=== PATIENT | female | born 1945 | race African-American/Black ===

== ENCOUNTER 2016-09-06 07:53 | Emergency (ER) | payer MEDICARE, MEDICAID ==
[~2016-09-06] VITALS: Ht 162.6 cm; Wt 80.0 kg
[~2016-09-06 07:53] MED LIST: BIMA2.5D4; BRIM10DR2 BOTHEYE; GLIP5TAB12 PO; LOSA100T14 PO; MORP60TA PO; MOTRIN PO; TRAV5DRO4 BOTHEYE
[2016-09-06] MEDS ORDERED: MORPHINE SULFATE 4 MG/ML CPJ (NOT FOR IM USE) IV ONE (08:30)
[2016-09-06] MEDS ORDERED: KETOROLAC 30MG/ML VIAL IV ONE (09:00)
[2016-09-06] MEDS ORDERED: ALBUTEROL (0.083%) 2.5MG/3ML NEB HHN STA (10:20)
[2016-09-06 11:33] VITALS: BP 124/61
== END 2016-09-06 12:46 | disposition home or self-care (01) ==
LOC: ER 08:18
DX: M48.02 Spinal stenosis, cervical region (principal); R06.00 Dyspnea, unspecified; E11.9 Type 2 diabetes mellitus without complications; I10 Essential (primary) hypertension; M54.9 Dorsalgia, unspecified; Z79.899 Other long term (current) drug therapy
CPT/HCPCS: 72125; 94640; 96374; 96375; 99284; J1885; J2270; J7611

== ENCOUNTER 2017-01-09 17:38 | Emergency (ER) | payer MEDICARE, MEDICAID ==
[~2017-01-09] VITALS: Ht 167.6 cm; Wt 95.0 kg
[2017-01-09 18:35] LABS: BASOPHILS % 0.5 % (0.0-2.0); HEMATOCRIT. 38.2 % (36.0-48.0); HEMOGLOBIN. 12.7 g/dL (12.0-16.0); LYMPHOCYTES % 28.3 % (20.0-50.0); MEAN CORPUSCULAR HEMOGLOBIN 29.9 pg (28.0-32.0); MEAN CORPUSCULAR VOLUME 89.6 fL (81.0-99.0); MONOCYTES % 9.2 % (2.0-8.0); PLATELET 215 x1000/uL (130-400); RED BLOOD CELL COUNT 4.26 mill/uL (4.2-5.4); RED CELL DISTRIBUTION WIDTH 13.2 % (11.6-14.6)
[2017-01-09 18:39] LABS: PROTHROMBIN TIME 10.5 sec
[2017-01-09 18:47] LABS: CARBON DIOXIDE 30 mEq/L (21-32); CHLORIDE 110 mEq/L (98-107); ETHANOL BLOOD < 10 mg/dL
[2017-01-09 18:49] LABS: TROPONIN I < 0.02 ng/mL (0.00-0.04)
[2017-01-09 19:09] LABS: *AMPHETAMINES SCREEN URINE NEGATIVE (NEGATIVE); *BARBITURATES SCREEN URINE NEGATIVE (NEGATIVE); *BENZODIAZEPINES SCREEN URINE NEGATIVE (NEGATIVE); *COCAINE SCREEN URINE NEGATIVE (NEGATIVE); CANNABINOID URINE SCREEN NEGATIVE (NEGATIVE); METHADONE URINE SCREEN NEGATIVE (NEGATIVE); OPIATES URINE SCREEN PRESUMTIVE POSITIVE (NEGATIVE); PHENCYCLIDINE URINE SCREEN NEGATIVE (NEGATIVE)
[2017-01-09 21:50] VITALS: BP 118/66
== END 2017-01-09 22:18 | disposition home or self-care (01) ==
LOC: ER 19:07
DX: M54.12 Radiculopathy, cervical region (principal); E11.9 Type 2 diabetes mellitus without complications; I10 Essential (primary) hypertension; J44.9 Chronic obstructive pulmonary disease, unspecified; M47.892 Other spondylosis, cervical region; Z90.49 Acquired absence of other specified parts of digestive tract
CPT/HCPCS: 36415; 71010; 72125; 80053; 80305; 84484; 85025; 85610; 93005; 99285; G0482

== ENCOUNTER 2017-03-23 12:01 | Emergency (ER) | payer MEDICARE, MEDICAID ==
[~2017-03-23] VITALS: Ht 165.1 cm; Wt 77.0 kg
[2017-03-23 16:27] LABS: CLARITY URINE CLEAR (CLEAR); COLOR URINE YELLOW (YELLOW); GLUCOSE URINE NEGATIVE (NEGATIVE); KETONES URINE NEGATIVE (NEGATIVE); LEUKOCYTE ESTERASE URINE NEGATIVE (NEGATIVE); NITRITE URINE NEGATIVE (NEGATIVE); OCCULT BLOOD URINE NEGATIVE (NEGATIVE); PROTEIN URINE NEGATIVE (NEGATIVE); SPECIFIC GRAVITY URINE 1.025 (1.005-1.030); UROBILINOGEN URINE 0.2 E.U./dL (0.2-1.0)
[2017-03-23] MEDS ORDERED: ONDANSETRON HCL 4MG/2ML VIAL IV STA (17:11)
[2017-03-23] MEDS ORDERED: SODIUM CHLORIDE 0.9% 1,000 ML IV ONE (17:11)
[2017-03-23] MEDS ORDERED: KETOROLAC 30MG/ML VIAL IM STA (17:11)
[2017-03-23 17:52] LABS: PROTHROMBIN TIME 10.4 sec (9.4-11.6)
[2017-03-23 17:53] LABS: BASOPHILS % 0.6 % (0.0-2.0); EOSINOPHILS % 3.5 % (0.0-5.0); HEMATOCRIT. 39.4 % (36.0-48.0); HEMOGLOBIN. 13.2 g/dL (12.0-16.0); MEAN CORPUSCULAR VOLUME 89.8 fL (81.0-99.0); MEAN PLATELET VOLUME 8.4 fl (7.4-10.4); MONOCYTES % 10.9 % (2.0-8.0); PLATELET 244 x1000/uL (130-400); RED BLOOD CELL COUNT 4.39 mill/uL (4.2-5.4); RED CELL DISTRIBUTION WIDTH 12.7 % (11.6-14.6)
[2017-03-23 17:57] LABS: BETA HYDROXYBUTYRATE 0.1 mMol/L (0.0-0.3); CARBON DIOXIDE 29 mEq/L (21-32); CHLORIDE 107 mEq/L (98-107)
[2017-03-23 19:16] VITALS: BP 143/66
== END 2017-03-23 19:19 | disposition home or self-care (01) ==
LOC: ER 14:49
DX: R10.9 Unspecified abdominal pain (principal); I10 Essential (primary) hypertension; E11.9 Type 2 diabetes mellitus without complications
CPT/HCPCS: 36415; 74176; 80053; 81003; 82010; 83690; 85025; 85610; 96361; 96372; 96374; 99285; J1885; J2405; J7030

== ENCOUNTER 2018-08-25 13:54 | Emergency (ER) | payer OTHER, MEDICAID ==
[~2018-08-25] VITALS: Ht 172.7 cm; Wt 79.0 kg
[~2018-08-25 13:54] MED LIST changes: -BIMA2.5D4; +FAMO-135 MT; +ONDA4TAB5 PO; -TRAV5DRO4 BOTHEYE
[2018-08-25 16:11] VITALS: BP 154/76
== END 2018-08-25 18:48 | disposition left against medical advice (07) ==
LOC: ER 16:21
DX: R10.9 Unspecified abdominal pain (principal); Z53.21 Procedure and treatment not carried out due to patient leaving prior to being seen by health care provider

== ENCOUNTER 2018-09-08 09:16 | Emergency (ER) | payer OTHER, MEDICAID ==
[~2018-09-08] VITALS: Ht 162.6 cm; Wt 79.0 kg
[2018-09-08 09:56] VITALS: BP 176/75
[2018-09-08] MEDS ORDERED: TETANUS, DIPHTHERIA, PERTUSSIS VAC/PF 0.5ML (>7YR OLD) IM ONE (10:45)
[2018-09-08] MEDS ORDERED: BACITRACIN 15GM TUBE TOP ONE (10:45)
== END 2018-09-08 11:30 | disposition home or self-care (01) ==
LOC: ER 09:16
DX: T21.22XA Burn of second degree of abdominal wall, initial encounter (principal); T21.21XA Burn of second degree of chest wall, initial encounter; E11.9 Type 2 diabetes mellitus without complications; I10 Essential (primary) hypertension; X10.2XXA Contact with fats and cooking oils, initial encounter; Y93.89 Activity, other specified; Y92.89 Other specified places as the place of occurrence of the external cause; Y99.8 Other external cause status; Z90.49 Acquired absence of other specified parts of digestive tract; Z87.19 Personal history of other diseases of the digestive system; Z79.899 Other long term (current) drug therapy; Z88.5 Allergy status to narcotic agent; Z98.890 Other specified postprocedural states
CPT/HCPCS: 16020; 90471; 90715; 99283; 99284

== ENCOUNTER 2018-11-19 14:59 | Emergency (ER) | payer OTHER, MEDICAID ==
[~2018-11-19] VITALS: Ht 165.1 cm; Wt 79.0 kg
[~2018-11-19 14:59] MED LIST changes: -LOSA100T14 PO; +LOSA100T32 PO
[2018-11-19 15:58] VITALS: BP 170/74
== END 2018-11-19 20:55 | disposition left against medical advice (07) ==
LOC: ER 14:59
DX: M79.671 Pain in right foot (principal); Z53.21 Procedure and treatment not carried out due to patient leaving prior to being seen by health care provider

== ENCOUNTER 2018-11-20 10:01 | Emergency (ER) | payer OTHER, MEDICAID ==
[~2018-11-20] VITALS: Ht 165.1 cm; Wt 80.0 kg
[2018-11-20] MEDS ORDERED: IBUPROFEN 400MG TABLET PO ONE (10:30)
[2018-11-20 11:50] VITALS: BP 160/89
== END 2018-11-20 12:02 | disposition home or self-care (01) ==
LOC: ER 10:01
DX: I73.9 Peripheral vascular disease, unspecified (principal); L97.519 Non-pressure chronic ulcer of other part of right foot with unspecified severity; I10 Essential (primary) hypertension; E11.9 Type 2 diabetes mellitus without complications; M54.30 Sciatica, unspecified side; Z90.49 Acquired absence of other specified parts of digestive tract; Z88.6 Allergy status to analgesic agent
CPT/HCPCS: 73610; 73630; 82962; 99283

== ENCOUNTER 2018-12-28 21:30 | Emergency (ER) | payer OTHER, MEDICAID ==
[~2018-12-28] VITALS: Ht 165.1 cm; Wt 86.0 kg
[2018-12-28] MEDS ORDERED: ONDANSETRON HCL 4MG/2ML INJ IV ONE (22:00)
[2018-12-28] MEDS ORDERED: MORPHINE SULFATE 4 MG/ML CPJ (NOT FOR IM USE) IV STA (22:14)
[2018-12-28 22:58] LABS: BASOPHILS % 0.9 % (0.0-2.0); EOSINOPHILS % 4.9 % (0.0-5.0); HEMOGLOBIN. 14.7 g/dL (12.0-16.0); LYMPHOCYTES % 32.5 % (20.0-50.0); MEAN CORPUSCULAR HEMOGLOBIN 30.3 pg (28.0-32.0); MEAN CORPUSCULAR VOLUME 90.7 fL (81.0-99.0); MEAN PLATELET VOLUME 8.8 fl (7.4-10.4); NEUTROPHILS % 51.7 % (40.0-76.0); PLATELET 211 x1000/uL (130-400); RED BLOOD CELL COUNT 4.85 mill/uL (4.2-5.4); RED CELL DISTRIBUTION WIDTH 12.6 % (11.6-14.6)
[2018-12-28 23:05] LABS: CHLORIDE 107 mEq/L (98-107)
[2018-12-28 23:09] LABS: ETHANOL BLOOD < 10 mg/dL
[2018-12-28] MEDS ORDERED: IOHEXOL-300 100 ML BOTTLE ONE (23:27)
[2018-12-28] MEDS ORDERED: DEXTROSE 50% WATER 50ML SYRINGE IV NR (23:30)
[2018-12-29 01:08] LABS: CLARITY URINE CLEAR (CLEAR); COLOR URINE YELLOW (YELLOW); KETONES URINE NEGATIVE (NEGATIVE); LEUKOCYTE ESTERASE URINE NEGATIVE (NEGATIVE); NITRITE URINE NEGATIVE (NEGATIVE); OCCULT BLOOD URINE NEGATIVE (NEGATIVE); PROTEIN URINE NEGATIVE (NEGATIVE)
[2018-12-29 01:20] LABS: *AMPHETAMINES SCREEN URINE NEGATIVE (NEGATIVE); *BARBITURATES SCREEN URINE NEGATIVE (NEGATIVE); *BENZODIAZEPINES SCREEN URINE NEGATIVE (NEGATIVE); *COCAINE SCREEN URINE NEGATIVE (NEGATIVE); METHADONE URINE SCREEN NEGATIVE (NEGATIVE)
[2018-12-29 01:22] LABS: CANNABINOID URINE SCREEN NEGATIVE (NEGATIVE); OPIATES URINE SCREEN PRESUMTIVE POSITIVE (NEGATIVE); PHENCYCLIDINE URINE SCREEN NEGATIVE (NEGATIVE)
[2018-12-29 01:55] VITALS: BP 126/55
== END 2018-12-29 01:58 | disposition home or self-care (01) ==
LOC: ER 21:30
DX: R10.32 Left lower quadrant pain (principal); E11.649 Type 2 diabetes mellitus with hypoglycemia without coma; I10 Essential (primary) hypertension; Z90.49 Acquired absence of other specified parts of digestive tract; Z79.899 Other long term (current) drug therapy; Z88.5 Allergy status to narcotic agent
CPT/HCPCS: 36415; 71045; 74177; 80053; 80305; 80320; 81003; 82962; 83690; 84484; 85025; 93005; 96374; 96375; 99284; J2270; J2405; Q9967; G0480

== ENCOUNTER 2019-08-09 10:02 | Emergency (ER) | payer OTHER, MEDICAID ==
[~2019-08-09] VITALS: Ht 160 cm; Wt 59.0 kg
[2019-08-09] MEDS ORDERED: ONDANSETRON HCL 4MG/2ML INJ IV STA (11:11)
[2019-08-09] MEDS ORDERED: SODIUM CHLORIDE 0.9% 1,000 ML IV ONE (11:11)
[2019-08-09] MEDS ORDERED: FAMOTIDINE 20MG/2ML VIAL IV ONE (11:15)
[2019-08-09 12:00] LABS: BASOPHILS % 0.6 % (0.0-2.0); EOSINOPHILS % 0.1 % (0.0-5.0); HEMATOCRIT. 51.3 % (36.0-48.0); HEMOGLOBIN. 17.1 g/dL (12.0-16.0); LYMPHOCYTES % 31.6 % (20.0-50.0); MEAN CORPUSCULAR HEMOGLOBIN 30.2 pg (28.0-32.0); MEAN CORPUSCULAR VOLUME 90.4 fL (81.0-99.0); MEAN PLATELET VOLUME 8.2 fl (7.4-10.4); MONOCYTES % 12.6 % (2.0-8.0); NEUTROPHILS % 55.1 % (40.0-76.0); PLATELET 201 x1000/uL (130-400); RED BLOOD CELL COUNT 5.68 mill/uL (4.2-5.4); RED CELL DISTRIBUTION WIDTH 13.2 % (11.6-14.6)
[2019-08-09] MEDS ORDERED: KETOROLAC 30MG/ML VIAL IV ONE (12:00)
[2019-08-09 12:21] LABS: CHLORIDE 111 mEq/L (98-107)
[2019-08-09 12:59] VITALS: BP 130/74
== END 2019-08-09 13:37 | disposition home or self-care (01) ==
LOC: ER 10:29
DX: R53.1 Weakness (principal); I10 Essential (primary) hypertension; E11.9 Type 2 diabetes mellitus without complications; Z90.49 Acquired absence of other specified parts of digestive tract; Z88.6 Allergy status to analgesic agent
CPT/HCPCS: 36415; 80053; 83690; 85025; 93005; 96374; 96375; 99284; J1885; J2405; J3490; J7030

== ENCOUNTER 2022-02-08 17:02 | Emergency (ER) | payer OTHER, MEDICAID ==
[~2022-02-08] VITALS: Ht 165.1 cm; Wt 77.0 kg
[2022-02-08] MEDS ORDERED: CYCLOBENZAPRINE 10MG TABLET PO ONE (20:45)
[2022-02-08] MEDS ORDERED: TRAMADOL 50MG TABLET PO ONE (20:45)
[2022-02-08 21:57] VITALS: BP 165/86
== END 2022-02-08 23:51 | disposition home or self-care (01) ==
LOC: ER 17:02
DX: G89.29 Other chronic pain (principal); M79.661 Pain in right lower leg; M79.662 Pain in left lower leg; E11.9 Type 2 diabetes mellitus without complications; I10 Essential (primary) hypertension; Z90.49 Acquired absence of other specified parts of digestive tract; Z88.8 Allergy status to other drugs, medicaments and biological substances
CPT/HCPCS: 99283

== ENCOUNTER 2022-02-21 16:34 | Emergency (ER) | payer MEDICAID, OTHER ==
[~2022-02-21] VITALS: Ht 160 cm; Wt 70.0 kg
[2022-02-21 16:44] VITALS: BP 191/98
[2022-02-21] MEDS ORDERED: IBUPROFEN 600MG TABLET PO ONE (19:30)
[2022-02-21] MEDS ORDERED: IBUP-2029 MT (21:13)
[2022-02-21] MEDS ORDERED: METH-653 MT (21:13)
== END 2022-02-21 21:40 | disposition home or self-care (01) ==
LOC: ER 16:34
DX: S80.11XA Contusion of right lower leg, initial encounter (principal); M47.817 Spondylosis without myelopathy or radiculopathy, lumbosacral region; I10 Essential (primary) hypertension; E11.9 Type 2 diabetes mellitus without complications; Z88.5 Allergy status to narcotic agent; Z79.899 Other long term (current) drug therapy; Z90.49 Acquired absence of other specified parts of digestive tract; W18.30XA Fall on same level, unspecified, initial encounter; Y93.01 Activity, walking, marching and hiking; Y92.89 Other specified places as the place of occurrence of the external cause; Y99.8 Other external cause status
CPT/HCPCS: 72100; 72170; 73590; 99284

== ENCOUNTER 2023-10-16 21:35 | Inpatient (IN) | payer MEDICARE, MEDICAID ==
[~2023-10-16] VITALS: Ht 165.1 cm; Wt 80.8 kg
[~2023-10-16 21:35] MED LIST changes: +BIMA2.5D4 EACHEYE; +CYCL30DR EACHEYE; +GABA-529 MT; -GLIP5TAB12 PO; +GLIP5TAB22 PO; +IBUP-2029 MT; +LOSA-412 MT; -LOSA100T32 PO; -MORP60TA PO; -MOTRIN PO
[2023-10-16] MEDS ORDERED: IPRATROPIUM BROMIDE (0.02%) 0.5MG/2.5ML NEB HHN STA (22:12)
[2023-10-16] MEDS ORDERED: ALBUTEROL (0.083%) 2.5MG/3ML NEB HHN STA (22:12)
[2023-10-16] MEDS: METHYLPREDNISOLONE SOD SUCC 125MG/2ML (ACT-O-VIAL) IV STA (22:12)
[2023-10-16 23:18] LABS: BASOPHILS % 0.5 % (0.0-2.0); EOSINOPHILS % 5.3 % (0.0-5.0); HEMATOCRIT. 42.2 % (36.0-48.0); HEMOGLOBIN. 14.1 g/dL (12.0-16.0); LYMPHOCYTES % 14.7 % (20.0-50.0); MEAN CORPUSCULAR HEMOGLOBIN 31.7 pg (28.0-32.0); MEAN CORPUSCULAR HGB CONC 33.4 g/dL (31.0-37.0); MEAN CORPUSCULAR VOLUME 94.8 fL (81.0-99.0); MEAN PLATELET VOLUME 8.2 fl (7.4-10.4); MONOCYTES % 7.6 % (2.0-8.0); NEUTROPHILS % 71.9 % (40.0-76.0); PLATELET 229 x1000/uL (130-400); RED BLOOD CELL COUNT 4.45 mill/uL (4.2-5.4); RED CELL DISTRIBUTION WIDTH 13.1 % (11.6-14.6); WHITE BLOOD COUNT 7.8 x1000/uL (4.5-11.0)
[2023-10-16 23:30] LABS: INR 0.9; PARTIAL THROMBOPLASTIN TIME 25.1 sec (23.4-31.0); PROTHROMBIN TIME 10.3 sec (9.6-11.0)
[2023-10-16 23:41] LABS: LACTIC ACID 2.1 mmol/L (0.4-2.0)
[2023-10-16] MEDS ORDERED: IPRATROPIUM BROMIDE (0.02%) 0.5MG/2.5ML NEB HHN NR (23:45)
[2023-10-16] MEDS ORDERED: ALBUTEROL (0.083%) 2.5MG/3ML NEB HHN NR (23:45)
[2023-10-16] MEDS: METHYLPREDNISOLONE SOD SUCC 125MG/2ML (ACT-O-VIAL) IV NR (23:45)
[2023-10-16 23:54] LABS: ALANINE AMINOTRANSFERASE 19 IU/L (10-49); ALBUMIN 4.2 g/dL (3.2-4.8); ASPARTATE AMINOTRANSFERASE 24 IU/L (<34); BILIRUBIN TOTAL 0.3 mg/dL (0.1-1.0); CALCIUM 8.9 mg/dL (8.7-10.4); CARBON DIOXIDE 27 mEq/L (21-32); CHLORIDE 108 mEq/L (98-107); CREATININE 0.8 mg/dL (0.6-1.0); GLUCOSE 128 mg/dL (70-105); POTASSIUM 3.4 mEq/L (3.5-5.1); SODIUM 143 mEq/L (136-145); TROPONIN I HIGH SENSITIVITY 6 ng/L (3.0-34); UREA NITROGEN BLOOD 12 mg/dL (9-23)
[2023-10-16 23:57] LABS: ETHANOL BLOOD < 10 mg/dL (<10)
[2023-10-17] MEDS: ACETAMINOPHEN 325MG TABLET PO NR (01:15)
[2023-10-17] MEDS: GUAIFENESIN 600MG ER TABLET PO NR (01:15)
[2023-10-17] MEDS ORDERED: ALBUTEROL (0.083%) 2.5MG/3ML NEB HHN NR (01:44)
[2023-10-17] MEDS ORDERED: DOCUSATE SODIUM 100MG CAPSULE PO PRN (05:15)
[2023-10-17] MEDS ORDERED: ACETAMINOPHEN 325MG TABLET PO PRN ×2 (05:15)
[2023-10-17] MEDS ORDERED: MAGNESIUM/ALUMINUM HYDROXIDE/SIMETHICONE 30ML UDC PO PRN (05:15)
[2023-10-17] MEDS: METHYLPREDNISOLONE SOD SUCC 125MG/2ML (ACT-O-VIAL) IV SCH (05:15)
[2023-10-17] MEDS ORDERED: ONDANSETRON HCL 4MG/2ML INJ IV PRN (05:15)
[2023-10-17] MEDS ORDERED: CLONIDINE 0.1MG TABLET PO PRN (05:15)
[2023-10-17] MEDS ORDERED: ZOLPIDEM TARTRATE 5MG TABLET PO PRN (05:15)
[2023-10-17] MEDS ORDERED: IPRATROPIUM/ALBUTEROL 0.5-3(2.5)MG/3ML NEB HHN PRN (05:15)
[2023-10-17] MEDS ORDERED: DEXTROSE 50% WATER 50ML SYRINGE IV PRN (05:15)
[2023-10-17] MEDS ORDERED: DIPHENHYDRAMINE 50MG/ML VIAL IV PRN (05:15)
[2023-10-17] MEDS: GABAPENTIN 400MG CAPSULE PO SCH (06:48)
[2023-10-17] MEDS: GLIPIZIDE XL 2.5MG TABLET PO SCH (07:50)
[2023-10-17] MEDS: INSULIN LISPRO 100 UNITS/ML SUBCUT SCH (08:20)
[2023-10-17] MEDS: DOCUSATE SODIUM 100MG CAPSULE PO SCH (09:00)
[2023-10-17] MEDS: LOSARTAN 100 MG TABLET PO SCH (11:44)
[2023-10-17] MEDS: ENOXAPARIN 40MG/0.4ML SYR SUBCUT SCH (11:45)
[2023-10-17] MEDS: ASPIRIN 81MG EC TABLET PO SCH (11:45)
[2023-10-17] MEDS: BLOOD SUGAR DIAGNOSTIC STRIP TEST SCH (11:45)
[2023-10-17 12:46] VITALS: PULSE 85; RESP 16; O2SAT 92
[2023-10-17] MEDS: IPRATROPIUM/ALBUTEROL 0.5-3(2.5)MG/3ML NEB HHN SCH (12:47)
[2023-10-17] MEDS: SODIUM CHLORIDE 0.9% INJ 3ML FLUSH IVF SCH (13:04)
[2023-10-17 13:56] VITALS: BP 151/77; PULSE 81; RESP 18; TEMP 98
[2023-10-17 16:00] VITALS: BP 165/75; PULSE 77; RESP 18; TEMP 96.9
[2023-10-17 17:39] VITALS: PULSE 84; RESP 16; O2SAT 93
[2023-10-17 20:00] VITALS: BP 143/77; PULSE 84; RESP 19; TEMP 99.7
[2023-10-17 20:53] VITALS: PULSE 82; RESP 16
[2023-10-17] MEDS: FAMOTIDINE 20MG TABLET PO SCH (21:15)
[2023-10-18] VITALS (10 sets, daily range): BP systolic 122–170; BP diastolic 64–84; PULSE 61–102; RESP 18–23; TEMP 97.5–98.2
[2023-10-18] MEDS: HYDRALAZINE 20MG/ML VIAL IV PRN (13:08)
[2023-10-18] MEDS: HYDROCODONE/ACETAMINOPHEN 5/325MG TABLET PO PRN (14:01)
[2023-10-18] MEDS: TRIAMCINOLONE ACETONIDE 0.1% CREAM 15GM TOP SCH (21:40)
[2023-10-19] VITALS (8 sets, daily range): BP systolic 101–131; BP diastolic 42–71; PULSE 60–90; RESP 14–20; TEMP 97.3–97.9; O2SAT 96
[2023-10-19] MEDS ORDERED: NALOXONE HCL 0.4MG/ML VIAL IV PRN (05:45)
[2023-10-19] MEDS: GUAIFENESIN 200MG/10ML SUGAR FREE UDC PO PRN (08:47)
== END 2023-10-19 16:00 | disposition home health service (06) | DRG 189 ==
LOC: ER 21:35 → 5WST 10-17 04:18 → EDBEDREQTM 10-17 04:29 → EDBEDREQ 10-17 04:29 → 7EST 10-17 13:39
PROVIDERS: ADMIT Internal Medicine; ATTEND Internal Medicine
DX: J96.01 Acute respiratory failure with hypoxia (principal); J20.9 Acute bronchitis, unspecified; I10 Essential (primary) hypertension; Z20.822 Contact with and (suspected) exposure to COVID-19; M54.9 Dorsalgia, unspecified; E11.9 Type 2 diabetes mellitus without complications; E78.00 Pure hypercholesterolemia, unspecified; G89.29 Other chronic pain; G62.9 Polyneuropathy, unspecified; M19.90 Unspecified osteoarthritis, unspecified site; M54.50 Low back pain, unspecified; Z90.49 Acquired absence of other specified parts of digestive tract; Z87.891 Personal history of nicotine dependence; Z88.5 Allergy status to narcotic agent
CPT/HCPCS: 36415; 71045; 80053; 80320; 82962; 83036; 83605; 83880; 84484; 85025; 87426; 93005; 94640; 97116; 97162; 99285; J0360; J1650; J1815; J2930; G0480

== ENCOUNTER 2023-10-29 18:24 | Inpatient (IN) | payer MEDICARE, MEDICAID ==
[~2023-10-29] VITALS: Ht 165.1 cm; Wt 77.1 kg
[2023-10-29 19:07] LABS: HEMATOCRIT. 42.7 % (36.0-48.0); HEMOGLOBIN. 14.1 g/dL (12.0-16.0); MEAN CORPUSCULAR HEMOGLOBIN 30.8 pg (28.0-32.0); MEAN CORPUSCULAR VOLUME 93.3 fL (81.0-99.0); PLATELET 236 x1000/uL (130-400); RED BLOOD CELL COUNT 4.58 mill/uL (4.2-5.4); RED CELL DISTRIBUTION WIDTH 13.2 % (11.6-14.6); WHITE BLOOD COUNT 7.4 x1000/uL (4.5-11.0)
[2023-10-29 19:09] LABS: DIFFERENTIAL COMMENT 1
[2023-10-29 19:16] LABS: CHLORIDE 110 mEq/L (98-107); POTASSIUM 4.3 mEq/L (3.5-5.1); SODIUM 142 mEq/L (136-145)
[2023-10-29 19:17] LABS: CALCIUM 9.5 mg/dL (8.7-10.4); CARBON DIOXIDE 27 mEq/L (21-32); INR 0.9; PROTHROMBIN TIME 10.1 sec (9.6-11.0)
[2023-10-29 19:22] LABS: CREATININE 0.8 mg/dL (0.6-1.0); GLUCOSE 98 mg/dL (70-105); UREA NITROGEN BLOOD 15 mg/dL (9-23)
[2023-10-29 19:23] LABS: TROPONIN I HIGH SENSITIVITY 5 ng/L (3.0-34)
[2023-10-29 19:24] LABS: ALANINE AMINOTRANSFERASE 28 IU/L (10-49); ALBUMIN 4.5 g/dL (3.2-4.8); ASPARTATE AMINOTRANSFERASE 24 IU/L (<34); BILIRUBIN TOTAL 0.4 mg/dL (0.1-1.0); CREATINE KINASE 101 IU/L (34-145); PROTEIN TOTAL 7.8 g/dL (6.0-8.3)
[2023-10-29] MEDS ORDERED: ALBUTEROL (0.083%) 2.5MG/3ML NEB HHN ONE (19:30)
[2023-10-29 19:35] VITALS: PULSE 86; RESP 20; O2SAT 100
[2023-10-29] MEDS: IPRATROPIUM/ALBUTEROL 0.5-3(2.5)MG/3ML NEB HHN ONE (19:35)
[2023-10-29 19:44] LABS: PLATELET ESTIMATE NORMAL
[2023-10-29] MEDS: KETOROLAC 15MG/ML VIAL IV ONE (19:59)
[2023-10-29] MEDS: SODIUM CHLORIDE 0.9% 1,000 ML IV ONE (19:59)
[2023-10-29] MEDS: METHYLPREDNISOLONE SOD SUCC 40MG/ML (ACT-O-VIAL) IV ONE (19:59)
[2023-10-29] MEDS: ACETAMINOPHEN 325MG TABLET PO ONE (20:00)
[2023-10-29] MEDS: GUAIFENESIN-DM 200MG-20MG/10ML UDC PO ONE (20:30)
[2023-10-29] MEDS ORDERED: ALBUTEROL (0.083%) 2.5MG/3ML NEB HHN NR (23:00)
[2023-10-29 23:55] VITALS: PULSE 76; RESP 18; O2SAT 97
[2023-10-30 02:09] VITALS: BP 134/85; PULSE 84; RESP 18; TEMP 97.9
[2023-10-30] MEDS ORDERED: IPRATROPIUM/ALBUTEROL 0.5-3(2.5)MG/3ML NEB HHN PRN (04:15)
[2023-10-30] MEDS ORDERED: DEXTROSE 50% WATER 50ML SYRINGE IV PRN (04:15)
[2023-10-30] MEDS: BLOOD SUGAR DIAGNOSTIC STRIP TEST SCH (06:30)
[2023-10-30] MEDS: INSULIN LISPRO 100 UNITS/ML SUBCUT SCH (06:50)
[2023-10-30 08:00] VITALS: BP 166/82; PULSE 87; RESP 20; TEMP 98.1
[2023-10-30] MEDS: GUAIFENESIN/CODEINE 200-20MG/10ML UDC PO PRN (08:06)
[2023-10-30] MEDS: PANTOPRAZOLE 40MG DR TABLET PO SCH (08:51)
[2023-10-30] MEDS: AZITHROMYCIN 500 MG TABLET PO SCH (08:51)
[2023-10-30] MEDS: ENOXAPARIN 40MG/0.4ML SYR SUBCUT SCH (08:51)
[2023-10-30] MEDS: PREDNISONE 20MG TABLET PO SCH (08:52)
[2023-10-30] MEDS: LOSARTAN 100 MG TABLET PO SCH (08:52)
[2023-10-30 12:00] VITALS: BP 162/86; PULSE 80; RESP 18; TEMP 98.6
[2023-10-30] MEDS: ACETAMINOPHEN 325MG TABLET PO PRN (15:10)
[2023-10-30] MEDS ORDERED: ACETAMINOPHEN 325MG TABLET PO PRN (15:15)
[2023-10-30 16:00] VITALS: BP 141/77; PULSE 76; RESP 18; TEMP 98.4
[2023-10-30] MEDS: AMLODIPINE 5MG TABLET PO SCH (18:21)
[2023-10-30 20:00] VITALS: BP 141/82; PULSE 88; RESP 20; TEMP 98.6
[2023-10-30] MEDS ORDERED: PNEUMOCOCCAL 23-VAL P-SAC VAC 0.5 ML IM ONE (21:00)
[2023-10-30] MEDS: BENZONATATE 100MG CAPSULE PO SCH (21:37)
[2023-10-30] MEDS ORDERED: ZOLPIDEM TARTRATE 5MG TABLET PO PRN (21:45)
[2023-10-31] VITALS: BP 132/74; PULSE 81; RESP 20; TEMP 98.1
[2023-10-31 04:00] VITALS: BP 149/83; PULSE 74; RESP 20; TEMP 97.5
[2023-10-31 08:00] VITALS: BP 154/87; PULSE 72; RESP 19; TEMP 97.9
[2023-10-31 12:00] VITALS: BP 157/90; PULSE 91; RESP 20; TEMP 97.9
[2023-10-31 16:00] VITALS: BP 164/81; PULSE 81; RESP 19; TEMP 97.7
[2023-10-31] MEDS: CLONIDINE 0.1MG TABLET PO PRN (17:26)
[2023-10-31 20:00] VITALS: BP 115/69; PULSE 74; RESP 18; TEMP 97
[2023-11-01] VITALS: BP 135/68; PULSE 84; RESP 20; TEMP 98.7
[2023-11-01 04:00] VITALS: BP 104/56; PULSE 67; RESP 20; TEMP 98.2
[2023-11-01 08:00] VITALS: BP 111/60; PULSE 67; RESP 20; TEMP 98.3
[2023-11-01] MEDS: FAMOTIDINE 20MG TABLET PO SCH (09:22)
[2023-11-01 11:28] LABS: BASOPHILS % 0.4 % (0.0-2.0); EOSINOPHILS % 6.4 % (0.0-5.0); HEMOGLOBIN. 13.3 g/dL (12.0-16.0); LYMPHOCYTES % 27.6 % (20.0-50.0); MEAN CORPUSCULAR HEMOGLOBIN 31.3 pg (28.0-32.0); MEAN CORPUSCULAR HGB CONC 33.4 g/dL (31.0-37.0); MEAN CORPUSCULAR VOLUME 93.9 fL (81.0-99.0); MEAN PLATELET VOLUME 8.1 fl (7.4-10.4); MONOCYTES % 8.7 % (2.0-8.0); NEUTROPHILS % 56.9 % (40.0-76.0); PLATELET 252 x1000/uL (130-400); RED BLOOD CELL COUNT 4.26 mill/uL (4.2-5.4); RED CELL DISTRIBUTION WIDTH 13.1 % (11.6-14.6); WHITE BLOOD COUNT 7.5 x1000/uL (4.5-11.0)
[2023-11-01 11:38] LABS: CHLORIDE 108 mEq/L (98-107); POTASSIUM 3.8 mEq/L (3.5-5.1); SODIUM 143 mEq/L (136-145)
[2023-11-01 11:39] LABS: CARBON DIOXIDE 30 mEq/L (21-32)
[2023-11-01 11:44] LABS: CREATININE 0.8 mg/dL (0.6-1.0); GLUCOSE 91 mg/dL (70-105); UREA NITROGEN BLOOD 13 mg/dL (9-23)
[2023-11-01 12:00] VITALS: BP 139/76; PULSE 77; RESP 20; TEMP 97.3
[2023-11-01 16:00] VITALS: BP 120/68; PULSE 74; RESP 20; TEMP 97.5
[2023-11-01 16:13] LABS: BG BASE EXCESS 0.7 mmol/L (-2.0-2.0); BG CARBOXYHEMOGLOBIN 0.2 % (0.5-1.5); BG DEOXYHEMOGLOBIN 3.4 % (0.0-5.0); BG FRACTION INSPIRED OXYGEN 21; BG HCO3 ACT 25.5 mmol/L (22.0-26.0); BG METHEMOGLOBIN 0.2 % (0.0-1.5); BG OXYGEN SATURATION 96.6 % (92.0-98.5); BG OXYHEMOGLOBIN 96.2 % (94.0-97.0); BG PCO2 41.9 mmHg (35.0-45.0); BG PH 7.403 (7.350-7.450); BG PO2 87.7 mmHg (75.0-100.0); BG SAMPLE SITE RIGHT RADIAL; BG TOTAL HEMOGLOBIN 13.9 g/dL (12.0-18.0); BG VENT MODE ROOM AIR
[2023-11-01 20:00] VITALS: BP 143/92; PULSE 78; RESP 18; TEMP 96.5
[2023-11-01] MEDS ORDERED: IOHEXOL-350 100 ML BOTTLE ONE (23:31)
[2023-11-02] VITALS: BP 145/77; PULSE 78; RESP 19; TEMP 96.6
[2023-11-02 04:00] VITALS: BP 143/72; PULSE 97; RESP 18; TEMP 98
[2023-11-02 08:00] VITALS: BP 141/72; PULSE 68; RESP 16; TEMP 97.1
[2023-11-02 08:05] LABS: EOSINOPHILS % 3.8 % (0.0-5.0); HEMOGLOBIN. 13.8 g/dL (12.0-16.0); LYMPHOCYTES % 26.1 % (20.0-50.0); MEAN CORPUSCULAR HEMOGLOBIN 31.1 pg (28.0-32.0); MEAN CORPUSCULAR HGB CONC 33.6 g/dL (31.0-37.0); MEAN CORPUSCULAR VOLUME 92.6 fL (81.0-99.0); MEAN PLATELET VOLUME 8.4 fl (7.4-10.4); MONOCYTES % 7.8 % (2.0-8.0); NEUTROPHILS % 61.3 % (40.0-76.0); PLATELET 254 x1000/uL (130-400); RED BLOOD CELL COUNT 4.43 mill/uL (4.2-5.4); RED CELL DISTRIBUTION WIDTH 13.2 % (11.6-14.6); WHITE BLOOD COUNT 7.7 x1000/uL (4.5-11.0)
[2023-11-02 08:20] LABS: CARBON DIOXIDE 29 mEq/L (21-32); CHLORIDE 106 mEq/L (98-107); POTASSIUM 3.7 mEq/L (3.5-5.1); SODIUM 141 mEq/L (136-145)
[2023-11-02 08:22] LABS: CALCIUM 9.7 mg/dL (8.7-10.4)
[2023-11-02 08:25] LABS: CREATININE 0.7 mg/dL (0.6-1.0)
[2023-11-02 08:26] LABS: GLUCOSE 75 mg/dL (70-105)
[2023-11-02 08:27] LABS: UREA NITROGEN BLOOD 13 mg/dL (9-23)
[2023-11-02 12:00] VITALS: BP 128/80; PULSE 73; RESP 18; TEMP 97
[2023-11-02] MEDS ORDERED: AZIT500T8 MT (15:14)
[2023-11-02] MEDS ORDERED: AMLO5TAB88 MT (15:14)
[2023-11-02] MEDS ORDERED: PRED10TA MT (15:14)
[2023-11-02] MEDS ORDERED: PRED5TAB MT (15:14)
[2023-11-02 17:17] VITALS: BP 141/72; PULSE 68; TEMP 97.1; O2SAT 100
== END 2023-11-02 17:50 | disposition home or self-care (01) | DRG 202 ==
LOC: ER 18:24 → EDBEDREQ 18:51 → 5WST 20:21 → EDBEDREQ 20:26 → EDBEDREQSVC 20:26 → 6WST 10-30 01:27
PROVIDERS: ADMIT Internal Medicine; ATTEND Internal Medicine
DX: J20.9 Acute bronchitis, unspecified (principal); J96.01 Acute respiratory failure with hypoxia; I10 Essential (primary) hypertension; G62.9 Polyneuropathy, unspecified; R53.1 Weakness; M54.50 Low back pain, unspecified; E11.40 Type 2 diabetes mellitus with diabetic neuropathy, unspecified; E78.00 Pure hypercholesterolemia, unspecified; G89.29 Other chronic pain; Z88.8 Allergy status to other drugs, medicaments and biological substances
CPT/HCPCS: 36415; 36600; 71045; 71275; 80048; 80053; 82375; 82550; 82805; 82962; 83036; 84145; 84484; 85025; 85379; 87070; 87426; 87804; 90732; 93005; 93970; 94640; 99285; J1650; J1815; J1885; J2920; J7030; J7512; Q9967

== ENCOUNTER 2024-03-08 17:20 | Emergency (ER) | payer MEDICARE, MEDICAID ==
[~2024-03-08] VITALS: Ht 167.6 cm; Wt 68.0 kg
[~2024-03-08 17:20] MED LIST changes: +AMLO5TAB88 MT; +AZIT500T8 MT; +PRED10TA MT; +PRED5TAB MT
[2024-03-08 17:29] VITALS: TEMP 98.4; O2SAT 98
[2024-03-08] MEDS ORDERED: INSULIN (17:29)
[2024-03-08 18:22] LABS: BASOPHILS % 0.6 % (0.0-2.0); EOSINOPHILS % 9.3 % (0.0-5.0); HEMATOCRIT. 41.1 % (36.0-48.0); HEMOGLOBIN. 13.7 g/dL (12.0-16.0); LYMPHOCYTES % 25.2 % (20.0-50.0); MEAN CORPUSCULAR HEMOGLOBIN 30.9 pg (28.0-32.0); MEAN CORPUSCULAR HGB CONC 33.3 g/dL (31.0-37.0); MEAN CORPUSCULAR VOLUME 92.8 fL (81.0-99.0); MONOCYTES % 9.4 % (2.0-8.0); NEUTROPHILS % 55.5 % (40.0-76.0); PLATELET 229 x1000/uL (130-400); RED BLOOD CELL COUNT 4.42 mill/uL (4.2-5.4); RED CELL DISTRIBUTION WIDTH 12.6 % (11.6-14.6); WHITE BLOOD COUNT 6.4 x1000/uL (4.5-11.0)
[2024-03-08 18:29] LABS: CHLORIDE 111 mEq/L (98-107); POTASSIUM 3.3 mEq/L (3.5-5.1); SODIUM 144 mEq/L (136-145)
[2024-03-08 18:30] LABS: CARBON DIOXIDE 28 mEq/L (21-32)
[2024-03-08 18:31] LABS: CALCIUM 9.4 mg/dL (8.7-10.4)
[2024-03-08 18:33] LABS: INR 0.9; PROTHROMBIN TIME 10.4 sec (9.6-11.0)
[2024-03-08 18:35] LABS: CREATININE 0.8 mg/dL (0.6-1.0); GLUCOSE 80 mg/dL (70-105); UREA NITROGEN BLOOD 12 mg/dL (9-23)
[2024-03-08 18:37] LABS: ALANINE AMINOTRANSFERASE 17 IU/L (10-49); ALBUMIN 4.1 g/dL (3.2-4.8); ASPARTATE AMINOTRANSFERASE 19 IU/L (<34); TROPONIN I HIGH SENSITIVITY < 4 ng/L (3.0-34)
[2024-03-08 18:38] LABS: BILIRUBIN DIRECT 0.1 mg/dL (<=3.0); BILIRUBIN TOTAL 0.3 mg/dL (0.1-1.0); PROTEIN TOTAL 6.8 g/dL (6.0-8.3)
[2024-03-08] MEDS: SODIUM CHLORIDE 0.9% 1,000 ML IV ONE (19:15)
[2024-03-08 19:45] LABS: CLARITY URINE CLOUDY (CLEAR); COLOR URINE YELLOW (YELLOW); GLUCOSE URINE NEGATIVE (NEGATIVE); KETONES URINE NEGATIVE (NEGATIVE); LEUKOCYTE ESTERASE URINE TRACE (NEGATIVE); NITRITE URINE NEGATIVE (NEGATIVE); OCCULT BLOOD URINE NEGATIVE (NEGATIVE); PH URINE 5.5 (4.5-8.0); PROTEIN URINE TRACE (NEGATIVE); SPECIFIC GRAVITY URINE 1.023 (1.005-1.030)
[2024-03-08 19:58] LABS: RBC URINE 0-2 /hpf (0-2); SQUAMOUS EPITHELIAL CELL URINE 2+ /lpf (RARE/1+)
[2024-03-08 20:00] LABS: BACTERIA URINE 2+
[2024-03-08] MEDS ORDERED: CEFP200T14 MT (20:14)
[2024-03-08] MEDS: CEFTRIAXONE 1GM/50ML 50 ML IV ONE (20:15)
[2024-03-08 20:59] VITALS: BP 137/85; PULSE 76; RESP 18; O2SAT 99
[2024-03-08] MEDS: CEFTRIAXONE SODIUM 1G VIAL IM ONE (21:39)
== END 2024-03-08 21:35 | disposition home or self-care (01) ==
LOC: ER 17:20
DX: R53.1 Weakness (principal); N39.0 Urinary tract infection, site not specified; I95.9 Hypotension, unspecified; J45.909 Unspecified asthma, uncomplicated; E11.9 Type 2 diabetes mellitus without complications; I10 Essential (primary) hypertension; Z90.49 Acquired absence of other specified parts of digestive tract; Z79.899 Other long term (current) drug therapy; Z88.5 Allergy status to narcotic agent
CPT/HCPCS: 99285; 71045; 80076; 80048; 81003; 83880; 83605; 85025; 85610; 87040; 87086; 84484; 36415; 84145; 93005; 96372; J0696; J7030

== ENCOUNTER 2024-03-20 13:30 | Emergency (ER) | payer MEDICARE, MEDICAID ==
[~2024-03-20] VITALS: Ht 165.1 cm; Wt 68.0 kg
[~2024-03-20 13:30] MED LIST changes: +CEFP200T14 MT; +INSULIN
[2024-03-20 13:33] VITALS: TEMP 98.9; O2SAT 97
[2024-03-20] MEDS: ONDANSETRON HCL 4MG/2ML INJ IV STA (15:21)
[2024-03-20] MEDS: SODIUM CHLORIDE 0.9% 1,000 ML IV ONE (15:21)
[2024-03-20] MEDS: MECLIZINE 25MG TABLET PO ONE (15:21)
[2024-03-20 15:29] LABS: EOSINOPHILS % 4.1 % (0.0-5.0); HEMATOCRIT. 44.4 % (36.0-48.0); HEMOGLOBIN. 14.4 g/dL (12.0-16.0); LYMPHOCYTES % 18.5 % (20.0-50.0); MEAN CORPUSCULAR HEMOGLOBIN 30.5 pg (28.0-32.0); MEAN CORPUSCULAR HGB CONC 32.6 g/dL (31.0-37.0); MEAN CORPUSCULAR VOLUME 93.7 fL (81.0-99.0); MEAN PLATELET VOLUME 8.6 fl (7.4-10.4); MONOCYTES % 8.3 % (2.0-8.0); NEUTROPHILS % 68.1 % (40.0-76.0); PLATELET 176 x1000/uL (130-400); RED BLOOD CELL COUNT 4.73 mill/uL (4.2-5.4); RED CELL DISTRIBUTION WIDTH 12.9 % (11.6-14.6); WHITE BLOOD COUNT 6.1 x1000/uL (4.5-11.0)
[2024-03-20 15:36] LABS: INR 0.9; PROTHROMBIN TIME 10.5 sec (9.6-11.0)
[2024-03-20 16:05] LABS: CHLORIDE 107 mEq/L (98-107); POTASSIUM 5.7 mEq/L (3.5-5.1); SODIUM 140 mEq/L (136-145)
[2024-03-20 16:06] LABS: CALCIUM 9.9 mg/dL (8.7-10.4); CARBON DIOXIDE 27 mEq/L (21-32)
[2024-03-20 16:11] LABS: CREATININE 0.7 mg/dL (0.6-1.0); GLUCOSE 83 mg/dL (70-105); UREA NITROGEN BLOOD 8 mg/dL (9-23)
[2024-03-20 16:12] LABS: TROPONIN I HIGH SENSITIVITY 5 ng/L (3.0-34)
[2024-03-20 18:54] VITALS: BP 154/82; PULSE 82; RESP 16; O2SAT 97
== END 2024-03-20 19:33 | disposition home or self-care (01) ==
LOC: ER 13:30
DX: R42 Dizziness and giddiness (principal); R55 Syncope and collapse; R53.1 Weakness; J45.909 Unspecified asthma, uncomplicated; E11.9 Type 2 diabetes mellitus without complications; I10 Essential (primary) hypertension; H40.9 Unspecified glaucoma; Z90.49 Acquired absence of other specified parts of digestive tract; Z79.899 Other long term (current) drug therapy
CPT/HCPCS: 99285; 96374; 70450; 71045; 96361; 80048; 85025; 85610; 84484; 36415; 93005; J8597; J2405; J7030

== ENCOUNTER 2025-06-09 16:05 | Emergency (ER) | payer OTHER, MEDICAID ==
[~2025-06-09] VITALS: Ht 165.1 cm; Wt 60.0 kg
[~2025-06-09 16:05] MED LIST changes: -AMLO5TAB88 MT; +IBUP-1455 MT; -IBUP-2029 MT; -LOSA-412 MT
[2025-06-09 16:06] VITALS: PULSE 98; RESP 16; O2SAT 99
[2025-06-09 16:07] VITALS: BP 127/71; TEMP 36.7; O2SAT 99
== END 2025-06-09 19:23 | disposition left against medical advice (07) ==
LOC: ER 16:05
DX: M79.642 Pain in left hand (principal)
CPT/HCPCS: 99281